=== PATIENT | female | born 1995 | race Caucasian/White ===

== ENCOUNTER 2016-07-28 18:02 | Emergency (ER) | payer OTHER ==
[2016-07-28 18:11] VITALS: BP 129/82
[2016-07-28] MEDS ORDERED: Lidocaine 2% VISCOUS* 15 ML UDC PO ONE (18:29)
[2016-07-28] MEDS ORDERED: Al Hydrox/Mg Hydrox/Simet LIQ* 30 ML UDC PO ONE (18:29)
--- NOTE | 2016-07-28 22:16 | ED ---
Brandin Patel Aidan, scribed for Stephen Mcbride MD on 07/28/16 at 1942 . 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 Her difficulty breathing is aggravated by cold air. The fumes also slightly burned her face and the burning sensation is still present. Associated symptoms include some nausea, a constant, moderate sore throat (5/10) chest pain, and difficulty eating. Pt denies any other respiratory issues. - History of Current Complaint Chief Complaint: EDGeneral Stated Complaint: INHALED BENZOIC ACID FUMES/THROAT BURNING Time Seen by Provider: 07/28/16 18:29 Hx Obtained From: Patient Onset/Duration: Sudden Onset, Lasting Hours, Still Present Timing: Constant Initial Severity: Moderate Current Severity: Moderate Pain Intensity: 5 Aggravating Factor(s): Other - cold air aggravates difficulty breathing, inhalation causes a chest discomfort/pain Alleviating Factor(s): Nothing - unknown Associated Signs and Symptoms: Chest Pain - chest pain caused by inhalation, sore throat, difficulty breathing, nausea PMH/Surg Hx/FS Hx/Imm Hx Infectious Disease History: No Infectious Disease History: Denies: Traveled Outside the [place] in Last 30 Days - Family History Known Family History: Positive: Hypertension - Social History Occupation: Student Lives: Alone Alcohol Use: None Smoking Status (MU): Never Smoked Tobacco Review of Systems Constitutional: Negative Eyes: Negative Positive: Sore Throat. Negative: Epistaxis, Dental Pain, Ear Ache, Nasal Discharge Positive: Chest Pain - caused by inhalation. Negative: Palpitations Respiratory: Other - difficulty breathing Negative: Cough Positive: Nausea. Negative: Abdominal Pain, Vomiting, Diarrhea Genitourinary: Negative Musculoskeletal: Negative Skin: Negative Neurological: Negative Psychological: Normal All Other Systems Reviewed And Are Negative: Yes Physical Exam Triage Information Reviewed: Yes Vital Signs On Initial Exam: Initial Vitals Temp Pulse Resp BP Pulse Ox 98.6 F 79 16 129/82 100 07/28/16 18:06 07/28/16 18:06 07/28/16 18:06 07/28/16 18:06 07/28/16 18:06 Vital Signs Reviewed: Yes Appearance: Positive: Well-Appearing, No Pain Distress Skin: Positive: Warm, Skin Color Reflects Adequate Perfusion, Dry Eyes: Positive: TINY ENT: Positive: Pharynx normal - no pharyngeal swelling, redness, or irritation, Other - moist mucosa. Negative: Pharyngeal erythema Respiratory/Lung Sounds: Positive: Clear to Auscultation, Breath Sounds Present. Negative: Rales, Rhonchi, Wheezes Cardiovascular: Positive: RRR, Other - no gallops, S1, S2. Negative: Murmur, Rub Abdomen Description: Positive: Nontender, Soft. Negative: Distended - flat Bowel Sounds: Positive: Present Musculoskeletal: Positive: Other - no calf tenderness. Negative: Edema Left, Edema Right Neurological: Positive: Alert, Oriented to Person Place, Time Psychiatric: Positive: Normal - logical and coherent, Affect/Mood Appropriate Diagnostics - Vital Signs Vital Signs Temp Pulse Resp BP Pulse Ox 07/28/16 18:06 98.6 F 79 16 129/82 100 - Laboratory Lab Statement: Any lab studies that have been ordered have been reviewed, and results considered in the medical decision making process. Re-Evaluation - Re-Evaluation First Eval Re-Evaluation Time: 19:42 - The patient is feeling better. Change: Improved Disposition - Course Course Of Treatment: She had a simple airway irritation from boiling benzoic acid. There was no actual ingestion and the benzoic acid did not boil over. She was simply affected by the fumes. Symptoms have been persistent but havent worsened. No signs of stridor, edema, or pharyngeal spasm. She had been observed here for 1.5 hours, will be discharged, and will return if symptoms worsen. - Diagnoses Provider Diagnoses: Irritable airways Discharge - Discharge Plan Condition: Good Disposition: HOME Referrals: Daphney Britton MD [Primary Care Provider] - If Needed The documentation as recorded by the Brandin sampson Aidan accurately reflects the service I personally performed and the decisions made by me, Stephen Mcbride MD.
== END 2016-07-28 20:38 | disposition home or self-care (01) ==
LOC: ED 18:02
DX: J45.909 Unspecified asthma, uncomplicated (principal); R07.9 Chest pain, unspecified; J02.9 Acute pharyngitis, unspecified; R11.0 Nausea; R06.02 Shortness of breath
CPT/HCPCS: 99282; A9270-GY